=== PATIENT | female | born 1970 | race Caucasian/White ===

== ENCOUNTER 2019-05-30 00:30 | Day surgery (SDC) | payer BC, SELFPAY ==
[2019-05-27 10:57] VITALS: BMI 25.5
--- NOTE | 2019-05-29 17:21 | HP_ITS ---
DATE OF SERVICE: 05/30/2019 PREOPERATIVE DIAGNOSIS: Displaced fracture of the proximal shaft of the right middle finger, proximal phalanx. HISTORY: The patient is 49-year-old. She was walking her dog, 05/20/2019, she tripped and fell. She said the finger was angulated at that time and it has straightened. She was in a splint for a week before I saw her, 05/27/2019. There were no lacerations. There is an apex volar deformity and some comminution of the very proximal shaft. On clinical exam, there appears to be rotation of the digit. Finger has been swollen and ecchymotic. We have elected to take this to surgery and perform a closed possible open reduction with likely internal fixation. We just explained to her the reason why I would recommend this and the possible complications of manipulating this comminuted fracture and of placing hardware to stabilize it. I explained the possibility of complications such as stiffness of the joint, persistent deformity, infection leading to bone infection and possible long-term poor outcome. She would like to proceed because the options are much better, although stiffness has a very high likelihood of being permanent to some degree. ALLERGIES: SHE HAS AN ALLERGY TO SULFA. MEDICATIONS: She takes a few medications, mostly [id number] products, vitamins, minerals, and stool softener. PRIOR SURGERY: Include neck surgery in 2018 and bunion surgery in 2018. She is a nonsmoker. REVIEW OF SYSTEMS: Otherwise negative. FAMILY HISTORY: Noncontributory. SOCIAL HISTORY: She lives in [place]. She works for [employer]. PHYSICAL EXAMINATION: GENERAL: She is an alert, cooperative adult female appearing her age in providing excellent history. She is 5 feet 1 inch, weighs 135 pounds. HEENT: Unremarkable. CHEST: Clear to auscultation. HEART: Regular rate and rhythm by palpation. ABDOMEN: Soft, nontender. EXTREMITIES: Generally appear normal, but there is swelling, stiffness, ecchymosis and tenderness at the right middle finger centered on the proximal phalanx. DIAGNOSIS: Displaced fracture of the right middle finger, proximal phalanx. PLAN: ORIF under general anesthesia. D I MT: Orlin ALEGRIA
[2019-05-30] VITALS (9 sets, daily range): BP systolic 122–150; BP diastolic 75–91; PULSE 57–82; RESP 10–16; TEMP 36.8–37; O2SAT 99–100
--- NOTE | ~2019-05-30 | XR_ITS ---
EXAMINATION: XR surgery orthopedic DATE: 05/30/2019 09:08 INDICATION: Right middle finger fracture. TECHNIQUE: 3 intraoperative fluoroscopic views of right hand were obtained. I was not present. Fluoro scopy exposure time was 31 seconds. COMPARISON: None. FINDINGS: There is an extra articular oblique fracture of base of third proximal phalanx. The distal fracture fragment demonstrates 20 degrees dorsal angulation. IMPRESSION: 1. Extra articular oblique fracture of base of third proximal phalanx. Reviewed, dictated and finalized at location A.
--- NOTE | 2019-05-30 07:15 | WPDANESEPPF ---
Anes - Initial Pre Proc Eval Procedure: Operation Date: 05/30/19 08:30 Proposed Procedures p Open Reduction Internal Fixation Proximal Phalanx Right Middle Finger - Oniel Reddy MD Date/Time: 05/30/19 07:15 Surgeon: Oniel Reddy MD Pre Op Diagnosis: Right Middle Proximal Phalanx Fx Patient Data Age: 49 Gender: F Height: 5 ft 1 in Weight: 61.36 kg Allergies Allergy/AdvReac Type Severity Reaction Status Date / Time Sulfa (Sulfonamide Allergy Anaphylaxis Verified 05/27/19 10:56 Antibiotics) Home Medications Medication Instructions Recorded Confirmed Type No Home Medications 05/27/19 05/27/19 History Patient hx anesthesia problems: none Family hx anesthesia problems: none [facility] Past Medical History Medical History (Updated 05/30/19 @ 07:15 by El Hassan MD) Healthy adult Social History Social History (Updated 05/30/19 @ 07:16 by El Hassan MD) Smoking status: Never smoker Alcohol intake: current Anes - Eval Final PreProcedure Day of Procedure 05/30/19 07:15 Patient weight: normal Heart: regular rate and rhythm Lungs: clear to auscultation Airway: Mallampati scale class II Neurological: alert and oriented Last oral intake: >/= 8 hours ASA classification: II Emergent: no Anesthetic plan: proceed Anesthesia type and monitoring: general LMA and standard monitoring Informed Consent: The patient's anesthetic plan and its attendant risks and benefits were discussed with the patient/family/POA. Questions were solicited and answers provided to the satisfaction of the patient/family/POA.
[2019-05-30] MEDS: SCOPOLAMINE 1.5 MG PATCH TRANSDERM (07:55)
[2019-05-30] MEDS: LACTATED RINGERS 1,000 ML 30 ML IV CONT ×2 (07:55→09:06)
[2019-05-30] MEDS: ceFAZolin 2 GM/D5W 50 ML 2 GM/50 ML BAG IVPB (07:55)
[2019-05-30] MEDS: IBUPROFEN IV 800 MG/200 ML 800 MG/200 ML BAG 400 MG IVPB (07:56)
[2019-05-30] MEDS: ONDANSETRON INJ 4 MG/2 ML VIAL IV PUSH (07:56)
--- NOTE | 2019-05-30 08:02 | WPDHPUPDATE1 ---
History and Physical Update Update Date/Time: 05/30/19 08:02 History and Physical has been reviewed, including an updated exam of the patient. There are NO changes in the patient's condition. Risks, benefits, and alternatives have been discussed and questions answered. Patient agrees to proceed with procedure.
--- NOTE | 2019-05-30 08:54 | SUR.OPER ---
ebl:[id number]
--- NOTE | 2019-05-30 09:07 | PM.OP ---
Procedure Note - Brief Procedure Note - Brief Date of procedure: 05/30/19 Pre-op diagnosis: Right Middle Proximal Phalanx Fx Closed,comminuted, displaced fracture of the proximal shaft of the proximal phalanx of the right ring finger. Post-op diagnosis: same Procedure performed: Closed manipulation of fracture of the right ring finger proximal phalanx. Application of splint. Anesthesia: GLMA Surgeon: Oniel Reddy MD Tactical Deception Plans Officer: Faina Drains: No Packing: No Pathology: none sent Complications: No immediate complications Condition: stable Disposition: PACU
--- NOTE | 2019-05-30 09:36 | PM.PROC ---
Procedure Note - Detailed Date of procedure: 05/30/19 Pre-op diagnosis: Right Middle Proximal Phalanx Fx Post-op diagnosis: other (Closed displaced comminuted shaft fracture proximal phalanx right ring finger) Procedure performed: Closed manipulation of displaced fracture of the proximal phalanx of the right ring finger and application of splint. Description of procedure: This healthy patient presented 2 days after falling while walking her dog and fracturing the base of the proximal phalanx of the right ring finger. It appears the fracture may extend intra-articularly. There is apex volar displacement through the metaphysis. On her initial visit we were not able to determine with the rotation was present. Job requires use of the keyboard. We elected to come to surgery to correct rotation under anesthesia and stabilized the joint as seemed appropriate. The finger was marked in the holding area. The patient was taken to the operating room and placed supine on the operating table. A time-out was held and confirmed. She was given general endotracheal anesthesia. The extremity was prepped and draped in the usual fashion. The C-arm was brought in and multiple images were made to determine if intra-articular extension of the fracture was present. I was not able to confirm that it was. It did seem that the finger scissored as we flexed the fingers into the palm. We made several adjustments to this and I believe we were successful correcting any rotational deformity. Images appeared to reveal least 3 fragments. The reduction seemed to be stable enough to forego internal fixation. We elected to wrap the middle and ring finger together and placed the 2 digits over a short palmar ortho glass splint which will allow some range of motion at the IP joint. I expect we will continue this for about 3 weeks and then most likely continue with simple soila splinting for 5 weeks total. Two grams of Ancef were given pre-op in anticipation of open reduction. She is discharged with instruction in bandage care and Follow-up. She will be seen in 2 weeks in my office. She has a prescription for hydrocodone 5/325 10. And Ondansetron 4 mg number 5. Surgeon: Oniel Reddy MD
== END 2019-05-30 11:05 | disposition home or self-care (01) ==
PROVIDERS: PCP Family Medicine; Visit Provider Plastic Surgery
PROC: (CPT 26725; principal; 2019-05-30 08:30)
DX: S62.612A Displaced fracture of proximal phalanx of right middle finger, initial encounter for closed fracture (principal); W19.XXXA Unspecified fall, initial encounter
CPT/HCPCS: 26725; A9270; J0690; J1100; J1741; J2250; J2405; J2704; J3010; J7120

== ENCOUNTER 2023-11-09 14:16 | Outpatient (CLI) | payer BC, SELFPAY | END 2023-11-09 14:17 | disposition home or self-care (01) | LOC: ANHAUDIO 14:18 | PROVIDERS: PCP Family Medicine; Visit Provider Otolaryngology | DX: H93.12 Tinnitus, left ear (principal); R42 Dizziness and giddiness; H90.42 Sensorineural hearing loss, unilateral, left ear, with unrestricted hearing on the contralateral side | CPT/HCPCS: 92557; 92567 ==